=== PATIENT | female | born 1990 | race Caucasian/White ===

== ENCOUNTER 2018-08-16 13:45 | Emergency (ER) | payer SELFPAY ==
[2018-08-16] MEDS ORDERED: Sodium Chloride 0.9% 10 ML Syringe FLUSH PRN (14:28)
[2018-08-16] MEDS ORDERED: Sodium Chloride 0.9% 1,000 ML IV SCH (14:30)
--- NOTE | 2018-08-16 14:34 | EDM.PDOC ---
ED HPI GENERAL MEDICAL PROBLEM - General Chief Complaint: General Stated Complaint: CHEST PAIN,WEAK,DIZZY,SYNCOPE Time Seen by Provider: 08/16/18 13:57 Source of Information: Reports: Patient, RN Notes Reviewed History Limitations: Reports: Uncooperative - History of Present Illness INITIAL COMMENTS - FREE TEXT/NARRATIVE: Patient is a 27-year-old female who presents to the ED for the evaluation of multiple complaints. She states that she is feeling weak, dizzy, presyncopal, and having some chest pain. She also does not think she has made much urine. She notes that she did drink alcohol heavily yesterday, white claw sparkling alcoholic beverages. And ate only 1 soft taco from [employer] at noon yesterday. She notes that she woke up this morning, and felt as if she was going a pass out, and she felt her heart racing. She was cool, clammy, and diaphoretic at this time. She denies any nausea/vomiting or headaches, or pain anywhere else in her body. She notes a prior history of anxiety as well, but does not take any medications for anxiety. 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 - Related Data Allergies Allergy/AdvReac Type Severity Reaction Status Date / Time No Known Allergies Allergy Verified 08/16/18 13:55 Home Meds: Home Meds . [No Known Home Meds] 08/16/18 [History] Past Medical History Musculoskeletal History: Reports: Fracture, Other (See Below) Other Musculoskeletal History: left hip fracture - Past Surgical History GI Surgical History: Reports: Appendectomy Social & Family History - Tobacco Use Smoking Status *Q: Current Every Day Smoker Years of Tobacco use: 10 Packs/Tins Daily: 1 - Caffeine Use Caffeine Use: Reports: Coffee - Recreational Drug Use Recreational Drug Use: No ED ROS GENERAL - Review of Systems Review Of Systems: See Below Constitutional: Reports: No Symptoms HEENT: Reports: No Symptoms Respiratory: Reports: No Symptoms Cardiovascular: Reports: Chest Pain, Palpitations Endocrine: Reports: No Symptoms GI/Abdominal: Reports: No Symptoms : Reports: No Symptoms Musculoskeletal: Reports: No Symptoms Skin: Reports: No Symptoms Neurological: Reports: Syncope. Denies: Pre-Existing Deficit Psychiatric: Reports: Anxiety Hematologic/Lymphatic: Reports: No Symptoms Immunologic: Reports: No Symptoms ED EXAM, GENERAL - Physical Exam Exam: See Below Exam Limited By: No Limitations General Appearance: Alert, WD/WN, No Apparent Distress Eye Exam: Bilateral Eye: Normal Inspection Head: Atraumatic, Normocephalic Respiratory/Chest: No Respiratory Distress, Lungs Clear, Normal Breath Sounds, No Accessory Muscle Use, Chest Non-Tender Cardiovascular: Normal Peripheral Pulses, Regular Rate, Rhythm, No Murmur GI/Abdominal: Normal Bowel Sounds, Soft, Non-Tender, No Distention, No Mass Back Exam: Normal Inspection, Full Range of Motion Extremities: Normal Inspection, Normal Capillary Refill Neurological: Alert, Oriented, Normal Cognition, No Motor/Sensory Deficits Psychiatric: Normal Affect, Normal Mood Skin Exam: Warm, Dry, Intact, No Rash, Pallor (generalized) EKG INTERPRETATION EKG Date: 08/16/18 Time: 13:51 Rhythm: NSR Rate (Beats/Min): 57 [place]: Normal P-Wave: Present QRS: Normal ST-T: Normal QT: Normal Comparison: NA - No Prior EKG EKG Interpretation Comments: Reviewed with Dr. Almanza and my myself. Course - Vital Signs Last Recorded V/S: Last Vital Signs Temp 96.3 F 08/16/18 13:52 Pulse 72 08/16/18 13:52 Resp 18 08/16/18 13:52 BP 102/87 08/16/18 13:52 Pulse Ox 100 08/16/18 13:52 - Orders/Labs/Meds Orders: Active Orders 24 hr Category Date Time Status EKG 12 Lead [EKG Documentation Completion] [] STAT Care 08/16/18 14:57 Active Peripheral IV Care [RC] . DIRECTED Care 08/16/18 14:28 Active Peripheral IV Insertion Adult [OM.PC] Routine Oth 08/16/18 14:28 Ordered Meds: Medications Discontinued Medications Generic Name Dose Route Start Last Admin Trade Name Freq PRN Reason Stop Dose Admin Sodium Chloride 1,000 mls @ 999 mls/hr 08/16/18 14:30 08/16/18 14:33 Normal Saline IV 999 mls/hr ASDIRECTED MOISE Administration Sodium Chloride 10 ml 08/16/18 14:28 08/16/18 14:33 Saline Flush FLUSH 10 ml ASDIRECTED PRN Administration Keep Vein Open - Re-Assessments/Exams Free Text/Narrative Re-Assessment/Exam: 08/16/18 14:33 Impression presents to the ED for the evaluation of multiple complaints. EKG was done at time of triage, and demonstrates no abnormalities at this time. It is likely that she is suffering from a hangover, I will start an IV and give her some IV fluids see if this does not make her feel better. 08/16/18 15:54 Patient was reassessed at bedside and does feel better after the bag of IV fluids. I have directed the patient to get a good meal after she has left the ER. She is understanding of this. Departure - Departure Time of Disposition: 15:55 Disposition: Home, Self-Care 01 Condition: Fair Clinical Impression: Hangover without complication - Discharge Information *PRESCRIPTION DRUG MONITORING PROGRAM REVIEWED*: No *COPY OF PRESCRIPTION DRUG MONITORING REPORT IN PATIENT JOSHUA: No Instructions: Binge-Drinking Information, Adult Referrals: PCP,None [Primary Care Provider] - Forms: ED Department Discharge Additional Instructions: You have been evaluated in the ED today for your general feelings of being unwell. You most likely are suffering from a hangover at this time. You did receive IV fluids in the ER, and this did help your symptoms subside. Recommend that if you are drinking alcoholic drinks, that you drink an 8 ounce glass of water with at least every other drink see your provider so some hydration. Further recommend that you obtain a good meal after you are discharged from ER. Please return to the ER if your symptoms should change or worsen. - My Orders Last 24 Hours: My Active Orders 08/16/18 14:28 Peripheral IV Care [RC] . DIRECTED Peripheral IV Insertion Adult [OM.PC] Routine 08/16/18 14:57 EKG 12 Lead [EKG Documentation Completion] [RC] STAT - Assessment/Plan Last 24 Hours: My Active Orders 08/16/18 14:28 Peripheral IV Care [RC] . DIRECTED Peripheral IV Insertion Adult [OM.PC] Routine 08/16/18 14:57 EKG 12 Lead [EKG Documentation Completion] [RC] STAT
== END 2018-08-16 16:12 | disposition home or self-care (01) ==
LOC: JD.ED 13:45
DX: F10.129 Alcohol abuse with intoxication, unspecified (principal); R07.9 Chest pain, unspecified; F17.210 Nicotine dependence, cigarettes, uncomplicated; Z90.49 Acquired absence of other specified parts of digestive tract
CPT/HCPCS: 93005; 96360; 99284; J7040; 93010; 99283